=== PATIENT | female | born 1990 | race Caucasian/White ===

== ENCOUNTER 2016-09-04 13:01 | Emergency (ER) | payer OTHER ==
[~2016-09-04] VITALS: Ht 165.1 cm; Wt 90.7 kg
[~2016-09-04 13:01] MED LIST: CHERATUSSIN AC118 ML PO; FLONASE1 SPRAYS NASAL; IBUPROFEN600 MG ORAL; ZITHROMAX250 MG ORAL
[2016-09-04 13:40] VITALS: BP 120/74
--- NOTE | 2016-09-04 13:59 | Emergency Room Report ---
History of Present Illness General Chief Complaint: Abdominal Pain Source: Patient Present Illness HPI 26-year-old female presents to the emergency department complaining of nausea, vomiting and diarrhea. Patient also reports generalized body aches and swelling of the right side of her cheek times one day. Patient reports fevers and chills. 9/10 in severity intermittent right lower abdominal pain. Patient states that she gets 1 episode of sharp pain in the lower abdomen per hour. pt. states diarrhea usually follows, and states on last episode of diarrhea there was BRBPR. pt. denies hx of constipation or hemorrhoids. pt. denies appreciable rectal pain. reports she took pepto once this am. pt. denies blood in the vomit. denies . denies ill contacts with similar symptoms or recent travel. Pt states she was born here and is UTD with all vaccinations. Denies CP , Palpitations, LOC, AMS, dizziness, Changes in Vision, Sensation, paresthesias , or a sudden severe headache. Allergies: Coded Allergies: No Known Allergies (Unverified , 04/28/14) Patient History Past Medical History: see triage record Past Surgical History: none Pertinent Family History: none Now: No Reviewed Nursing Documentation: PMH: Agreed, PSxH: Agreed Nursing Documentation-PMH Past Medical History: No Stated History Review of Systems All Other Systems: negative except mentioned in HPI Physical Exam Vital Signs Date Time Temp Pulse Resp B/P Pulse Ox O2 Delivery O2 Flow Rate FiO2 09/04/16 13:20 101.1 127 20 120/82 99 Room Air Sp02 EP Interpretation: reviewed, abnormal - Pt is tachycardic and febrile General Appearance: no apparent distress, alert, GCS 15, non-toxic Head: normocephalic, atraumatic Eyes: bilateral eye PERRL, bilateral eye normal inspection ENT: hearing grossly normal, normal pharynx, no angioedema, normal voice, TMs + canals normal, uvula midline, dry mucus membranes, other - external right parotid swelling noted, no palpable fluctuance, no stone palpated on bimanual exam. no erythema Neck: full range of motion, supple/symm/no masses Respiratory: chest non-tender, lungs clear, normal breath sounds, speaking full sentences Cardiovascular #1: regular rate, rhythm, no edema Gastrointestinal: normal bowel sounds, non tender, soft, no guarding, no rebound, other - Negative [place] signs, Negative MacBurney's sign, Negative Rosvigns Sign, Negative Psoas, No Peritoneal signs. Rectal: heme negative stool, deferred, black stool Genitourinary: normal inspection, no CVA tenderness Musculoskeletal: back normal, gait/station normal, normal range of motion, non- tender, no calf tenderness Neurologic: alert, oriented x3, responsive, motor strength/tone normal, sensory intact, speech normal Psychiatric: judgement/insight normal, memory normal, mood/affect normal, no suicidal/homicidal ideation Skin: normal color, no rash, warm/dry, well hydrated Lymphatic: no adenopathy Medical Decision Making PA Attestation Dr. reynolds is my supervising Physician whom patient management has been discussed with. Diagnostic Impression: Primary Impression: Gastroenteritis and colitis, viral Additional Impressions: Parotitis, acute Urinary tract infection Qualified Codes: N30.01 - Acute cystitis with hematuria ER Course 26-year-old female presents to the emergency department complaining of nausea, vomiting and diarrhea. Patient also reports generalized body aches and swelling of the right side of her cheek times one day. Patient reports fevers and chills. 9/10 in severity intermittent right lower abdominal pain. Patient states that she gets 1 episode of sharp pain in the lower abdomen per hour. pt. states diarrhea usually follows, and states on last episode of diarrhea there was BRBPR. pt. denies hx of constipation or hemorrhoids. pt. denies appreciable rectal pain. reports she took Pepto once this am. pt. denies blood in the vomit. denies . denies ill contacts with similar symptoms or recent travel. Pt states she was born here and is UTD with all vaccinations. Ddx considered but are not limited to GE, colitis, acute appy, SBO, * , dehydration, infectious diarrhea, viral syndrome, mumps, soft tissue abscess, sialoadenitis. Vital signs: pt. is febrile and tachycardic. H&PE are most consistent with viral syndrome/ Gastroenteritis. - as abdominal physical exam was benign including to tenderness in the adnexal area, I felt CT imaging would not change my management of this patient at this time. ORDERS: -CBC: wbc's elevated at 12.7 -CMP: low NA and Cl, otherwise unremarkable -Lipase: WNL -UA: bacteria, moderate WBC's and leukocytes indicating UTI. -Urine Hcg: Negative ED INTERVENTIONS: -1000mg Tylenol PO - 625 PO once, She continued to be febrile an additional 325 mg Tylenol was given in addition to cooling therapy with ice packs. -- upon re-evaluation fever has subsided. 1000 NS iv hydration, and 4mg IVP zofran for nausea. -500mg Cipro PO d/w pt. that she will be managed as outpatient for possible infectious diarrhea , d/w pt. importance of returning to the ED immediately with and change in condition such as worsening or new symptoms. d/w pt. although enteritis is most likely her symptoms could also be early appendicitis and why follow up in 48 hours is necessary. Pt. and mother who is bedside verbalize their understanding and agreement with proposed treatment plan. DISCHARGE: At this time pt. is stable for d/c to home. Will provide printed patient care instructions, and any necessary prescriptions. Care plan and follow up instructions have been discussed with the patient prior to discharge. Labs Test 09/04/16 13:30 09/04/16 13:46 White Blood Count 12.7 K/UL (4.8-10.8) Red Blood Count 4.75 M/UL (4.20-5.40) Hemoglobin 13.6 G/DL (12.0-16.0) Hematocrit 41.2 % (37.0-47.0) Mean Corpuscular Volume 87 FL (80-99) Mean Corpuscular Hemoglobin 28.6 PG (27.0-31.0) Mean Corpuscular Hemoglobin Concent 33.0 G/DL (32.0-36.0) Red Cell Distribution Width 12.1 % (11.6-14.8) Platelet Count 176 K/UL (150-450) Mean Platelet Volume 9.5 FL (6.5-10.1) Neutrophils (%) (Auto) 80.2 % (45.0-75.0) Lymphocytes (%) (Auto) 13.6 % (20.0-45.0) Monocytes (%) (Auto) 5.9 % (1.0-10.0) Eosinophils (%) (Auto) 0.0 % (0.0-3.0) Basophils (%) (Auto) 0.3 % (0.0-2.0) Sodium Level 134 mEQ/L (135-145) Potassium Level 4.3 mEQ/L (3.4-4.9) Chloride Level 96 mEQ/L (98-107) Carbon Dioxide Level 22 mEQ/L (20-30) Anion Gap 16 (5-15) Blood Urea Nitrogen 10 mg/dL (7-23) Creatinine 0.9 mg/dL (0.5-0.9) Estimat Glomerular Filtration Rate > 60 mL/min (>60) Glucose Level 104 mg/dL (74-106) Calcium Level 9.7 mg/dL (8.6-10.2) Total Bilirubin 0.6 mg/dL (0.0-1.2) Aspartate Amino Transf (AST/SGOT) 21 U/L (5-40) Alanine Aminotransferase (ALT/SGPT) 22 U/L (3-33) Alkaline Phosphatase 68 U/L (35-104) Total Protein 7.7 g/dL (6.6-8.7) Albumin 3.9 g/dL (3.5-5.2) Globulin 3.8 g/dL Albumin/Globulin Ratio 1.0 (1.0-2.7) Lipase 19 U/L (< 60) Urine Color Yellow Urine Appearance Slightly cloudy Urine pH 5 (4.5-8.0) Urine Specific [place] 1.015 (1.005-1.035) Urine Protein 3+ (NEGATIVE) Urine Glucose (UA) Negative (NEGATIVE) Urine Ketones 1+ (NEGATIVE) Urine Occult Blood 2+ (NEGATIVE) Urine Nitrite Negative (NEGATIVE) Urine Bilirubin Negative (NEGATIVE) Urine Urobilinogen Normal MG/DL (0.0-1.0) Urine Leukocyte Esterase 1+ (NEGATIVE) Urine RBC 10-15 /HPF (0 - 2) Urine WBC 5-10 /HPF (0 - 2) Urine Squamous Epithelial Cells Moderate /LPF (NONE/OCC) Urine Bacteria Few /HPF (NONE) Urine Mucus Moderate /LPF (NONE/OCC) Urine HCG, Qualitative Negative Last Vital Signs Date Time Temp Pulse Resp B/P Pulse Ox O2 Delivery O2 Flow Rate FiO2 09/04/16 13:20 101.1 127 20 120/82 99 Room Air Disposition: HOME, SELF-CARE Condition: Stable Scripts Ondansetron Odt* (ZOFRAN ODT*) 4 Mg Tab.rapdis 4 MG ORAL Q6H Y for Nausea & Vomiting, #12 TAB Prov: Kristi Quinonez 09/04/16 Acetaminophen* (TYLENOL EXTRA STRENGTH*) 500 Mg Tablet 500 MG ORAL Q6H, #20 TAB 0 Refills Prov: Kristi Quinonez 09/04/16 Ciprofloxacin* (CIPRO*) 500 Mg Tablet 500 MG PO BID for 7 Days, #14 TAB Prov: Kristi Quinonez 09/04/16 Patient Instructions: Parotitis, [id number], Urinary Tract Infection, Easy-to -Read, Viral Gastroenteritis, Adult, [id number] Additional Instructions: Take medications as directed. Follow up with PCP within 48 hours Return sooner to ED if new symptoms occur, or current symptoms become worse. - Please note that this Emergency Department Report was dictated using Correleccollection development librarian technology software, occasionally this can lead to erroneous entry secondary to interpretation by the dictation equipment. Kristi Quinonez September 04, 2016 13:59
[2016-09-04 14:17] LABS: BASOPHILS % (AUTO) 0.3 % (0.0-2.0); LYMPHOCYTES % (AUTO) 13.6 % (20.0-45.0); MEAN CORPUSCULAR HEMOGLOBIN 28.6 PG (27.0-31.0); MEAN CORPUSCULAR VOLUME 87 FL (80-99); MEAN PLATELET VOLUME 9.5 FL (6.5-10.1); MONOCYTES % (AUTO) 5.9 % (1.0-10.0); NEUTROPHILS % (AUTO) 80.2 % (45.0-75.0); PLATELET COUNT 176 K/UL (150-450); RED BLOOD COUNT 4.75 M/UL (4.20-5.40); RED CELL DISTRIBUTION WIDTH 12.1 % (11.6-14.8); WHITE BLOOD COUNT 12.7 K/UL (4.8-10.8)
[2016-09-04 14:18] LABS: APPEARANCE,URINE SLIGHTLY CLOUDY; KETONES,URINE 1+ (NEGATIVE); LEUKOCYTE ESTERASE ,URINE 1+ (NEGATIVE); NITRITE,URINE NEGATIVE (NEGATIVE); PH,URINE 5 (4.5-8.0); PROTEIN,URINE 3+ (NEGATIVE); UROBILINOGEN,URINE NORMAL MG/DL (0.0-1.0)
[2016-09-04 14:29] LABS: ALANINE AMINOTRANSFERASE 22 U/L (3-33); ANION GAP 16 (5-15); ASPARTATE AMINO TRANSFERASE 21 U/L (5-40); CALCIUM 9.7 mg/dL (8.6-10.2); CARBON DIOXIDE 22 mEQ/L (20-30); CHLORIDE 96 mEQ/L (98-107); CREATININE 0.9 mg/dL (0.5-0.9); GLOMERULAR FILTRATION RATE > 60 mL/min (>60); HEMOLYSIS 1; LIPASE 19 U/L (< 60); POTASSIUM 4.3 mEQ/L (3.4-4.9); SODIUM 134 mEQ/L (135-145); TOTAL PROTEIN 7.7 g/dL (6.6-8.7)
[2016-09-04] MEDS ORDERED: Famotidine 20 MG/ 2ML VIAL IVP ONE (14:30)
[2016-09-04] MEDS ORDERED: Ciprofloxacin 500mg tab ORAL ONE (14:45)
[2016-09-04 14:47] LABS: BACTERIA,URINE FEW /HPF; MUCUS,URINE MODERATE /LPF (NONE/OCC); SQUAMOUS EPITHELIAL CELL,UR MODERATE /LPF (NONE/OCC)
[2016-09-04] MEDS ORDERED: ZOFRAN ODT4 MG ORAL (15:23)
[2016-09-04] MEDS ORDERED: CIPRO500 MG PO (15:23)
[2016-09-04] MEDS ORDERED: TYLENOL EXTRA500 MG ORAL (15:23)
[2016-09-04 15:56] VITALS: BP 102/51
== END 2016-09-04 15:58 | disposition home or self-care (01) ==
LOC: EMR 13:43
DX: K52.9 Noninfective gastroenteritis and colitis, unspecified (principal); K11.21 Acute sialoadenitis; N39.0 Urinary tract infection, site not specified
CPT/HCPCS: 36415; 80053; 81003; 81025; 83690; 85025; 96360; 96374; 96375; 99284; J2405; S0028

== ENCOUNTER 2019-07-06 11:49 | Emergency (ER) | payer OTHER ==
[~2019-07-06] VITALS: Ht 165.1 cm; Wt 90.7 kg
[~2019-07-06 11:49] MED LIST changes: +CIPRO500 MG PO; +TYLENOL EXTRA500 MG ORAL; +ZOFRAN ODT4 MG ORAL
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
[2019-07-06 12:02] VITALS: BP 142/78
[2019-07-06] MEDS ORDERED: TYLENOL325 MG ORAL (12:58)
[2019-07-06] MEDS ORDERED: IBUPROFEN600 MG ORAL (12:58)
[2019-07-06] MEDS ORDERED: ROBAXIN-750750 MG PO (12:58)
[2019-07-06] MEDS ORDERED: LIDODERM700 M1 TOPIC (12:58)
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
[2019-07-06] MEDS ORDERED: Acetaminophen 500mg (ES) tab ORAL ONE (13:00)
[2019-07-06] MEDS ORDERED: Methocarbamol 750mg tab ORAL ONE (13:00)
[2019-07-06] MEDS ORDERED: Ketorolac 30mg Inj IM ONE (13:00)
--- NOTE | 2019-07-06 13:51 | NUR ---
ED Nurse Note: Pt went on x-ray accompanied by tech.
[2019-07-06 14:55] VITALS: BP 142/78
--- NOTE | 2019-07-06 14:55 | NUR ---
ER DISCHARGE NOTE: Patient is cleared to be discharged per ERMD, pt is aox4, on room air, with stable vital signs. pt was given dc and prescription instructions, pt was able to verbalize understanding, pt id band removed. pt is able to ambulate with steady gait. pt took all belongings.
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
== END 2019-07-06 14:55 | disposition home or self-care (01) ==
LOC: EMR 14:55
DX: T14.90XA Injury, unspecified, initial encounter (principal); V43.62XA Car passenger injured in collision with other type car in traffic accident, initial encounter; Y92.410 Unspecified street and highway as the place of occurrence of the external cause; M54.5 Low back pain
CPT/HCPCS: 72020; 81025; 96372; J1885; Z7502; 99283

== ENCOUNTER 2019-12-05 16:25 | Emergency (ER) | payer OTHER ==
[~2019-12-05] VITALS: Ht 165.1 cm; Wt 90.7 kg
[~2019-12-05 16:25] MED LIST changes: +LIDODERM700 M1 TOPIC; +ROBAXIN-750750 MG PO; +TYLENOL325 MG ORAL
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
--- NOTE | 2019-12-05 17:03 | NUR ---
ED Nurse Note: urine sent to labs.
[2019-12-05 17:07] VITALS: BP 117/71
[2019-12-05] MEDS ORDERED: traMADol 50mg tab ORAL ONE (17:15)
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
[2019-12-05] MEDS ORDERED: Ketorolac 30mg Inj IM ONE (17:45)
--- NOTE | 2019-12-05 17:47 | NUR ---
ED Nurse Note: pt taken to CT on stable condition.
--- NOTE | 2019-12-05 18:09 | NUR ---
ED Nurse Note: pt returned from CT.
--- NOTE | 2019-12-05 18:35 | Diagnostic Imaging Report ---
EXAM: CT Lumbar Spine Without Intravenous Contrast CLINICAL HISTORY: PAIN TECHNIQUE: Axial computed tomography images of the lumbar spine without intravenous contrast. CTDI is 24 mGy and DLP is 855 mGy-cm. One or more of the following dose reduction techniques were used: automated exposure control, adjustment of the mA and/or kV according to patient size, use of iterative reconstruction technique. COMPARISON: No relevant prior studies available. FINDINGS: Vertebrae: Unremarkable. No acute fracture. Alignment is preserved. Disc spaces are maintained. No spinal canal or foraminal stenosis. Soft tissues: Unremarkable. IMPRESSION: Normal lumbar spine CT.
--- NOTE | 2019-12-05 19:14 | NUR ---
ED Nurse Note: Hand off given to Krystin VIZCAINO.
[2019-12-05] MEDS ORDERED: Morphine Sulfate 2mg/ml Inj(IV/IM USE ONLY) IVP ONE (19:15)
--- NOTE | 2019-12-05 19:20 | NUR ---
ED Nurse Note: Recieved report to resume care, pt in bed lying supine, awake and alert, has been medicated for back pain but states meds not effective at all, SENIOR TELECOMMUNICATIONS ENGINEER at bedside speaking with pt, will resume care as ordered and closely monitor.
[2019-12-05] MEDS ORDERED: Morphine Sulfate 2mg/ml Inj(IV/IM USE ONLY) IM ONE (19:30)
[2019-12-05] MEDS ORDERED: TRAMADOL HCL50 MG ORAL (19:53)
[2019-12-05] MEDS ORDERED: LIDODERM700 M1 TOPIC (19:53)
--- NOTE | 2019-12-05 20:00 | NUR ---
ED Nurse Note: Pt medicated for pain, meds effective with pain at 5/10, pt is ambulatory, being d/c to home with mother, all instructions and prescriptions given and pt re-verbalizes safety measures with administration, armband removed, nad noted during d/c to home.
[2019-12-05 20:10] VITALS: BP 117/71
== END 2019-12-05 20:10 | disposition home or self-care (01) ==
LOC: EMR 16:51
DX: M54.41 Lumbago with sciatica, right side (principal)
CPT/HCPCS: 72131; 81025; 96372; J1885; J2270; Z7502; 99284

== ENCOUNTER 2020-03-28 23:43 | Emergency (ER) | payer MEDICAID, OTHER ==
[~2020-03-28] VITALS: Ht 165.1 cm; Wt 90.7 kg
[~2020-03-28 23:43] MED LIST changes: +TRAMADOL HCL50 MG ORAL
[2020-03-28 23:53] VITALS: BP 127/85
--- NOTE | 2020-03-29 00:06 | NUR ---
ED Nurse Note: pt ambulated into ed from home co vaginal itching, burning, dark urine, and foul smell x 5 days with thin liquidy discharge. pt states previous hx of yeast infection in the past. pt aao x 4, ambulates with steady gait. pt states she is unable to provide urine sample at this time. will continue to monitor. awaiting ermd at bedside. awaiting further orders.
--- NOTE | 2020-03-29 00:30 | NUR ---
ED Nurse Note: ERMD and RN at bedside for vaginal exam and wet mount. pt tolerated well no ss of distress noted. will continue to monitor.
--- NOTE | 2020-03-29 00:33 | Emergency Room Report ---
History of Present Illness General Chief Complaint: Female Urogenital Problems Source: Patient Present Illness HPI Patient is a 29-year-old female presents for increased vaginal irritation. Onset of symptoms for the past few days. Denies any recent unprotected intercourse. Had not taken any medications. Patient had recently changed primary care physicians. Reports having some increased discomfort after u rination but denies any urgency or frequency. Prior history of herpes and is currently on prophylaxis with medications. Denies any skin lesions. Denies any fever or other locations of discomfort. Allergies: Coded Allergies: PENICILLINS (Verified Allergy, Mild, 03/29/20) COVID-19 Screening Contact w/high risk pt: No Experienced COVID-19 symptoms?: No COVID-19 Testing performed REPA[employer]ER [employer]OD FURNITURE: No Patient History Last Menstrual Period: 03/17/2020 Now: No : 0 Para: 0 Nursing Documentation-[facility] Past Medical History: No Stated History Physical Exam Vital Signs Date Time Temp Pulse Resp B/P (MAP) Pulse Ox O2 Delivery O2 Flow Rate FiO2 03/28/20 23:43 97.7 76 18 127/85 (99) 95 Room Air Sp02 EP Interpretation: reviewed, normal General Appearance: normal inspection, well appearing, no apparent distress, alert, GCS 15 Head: atraumatic ENT: normal ENT inspection, hearing grossly normal, normal voice Neck: normal inspection, full range of motion, supple, no bony tend Respiratory: normal inspection, lungs clear, normal breath sounds, no respiratory distress, no retraction, no wheezing Cardiovascular #1: regular rate, rhythm, no edema Gastrointestinal: normal inspection, normal bowel sounds, non tender, soft, no guarding, no hernia Genitourinary: no CVA tenderness, os closed, other - Cervical discharge with slight yellow discoloration Musculoskeletal: normal inspection, back normal, normal range of motion Neurologic: alert, motor strength/tone normal, rubber process hand III-XII nml as tested, responsive, speech normal, normal inspection Psychiatric: normal inspection, judgement/insight normal, mood/affect normal Medical Decision Making Diagnostic Impression: Primary Impression: Cervicitis Additional Impression: Vaginitis ER Course Patient presented for increased vaginal discomfort. Differential diagnosis include was not limited to herpes, yeast infection, urethritis among others. Patient has a benign exam and does not appear to require any imaging or laboratory testing at this time. Wet mount shows no evidence of trichomonas or yeast. Patient was given oral azithromycin. Patient be discharged home. She was advised to have outpatient STD testing. The patient is advised to follow up with primary care doctor in 1-2 days. Patient is advised to return if any worsening condition or if any changes in status that are concerning. This report is dictated with [employer] health care aide software which may occasio darwin lead to discrepancies related to use of this software. Labs Test 03/29/20 00:30 Urine Color Yellow Urine Appearance Clear Urine pH 5 (4.5-8.0) Urine Specific [place] 1.025 (1.005-1.035) Urine Protein Negative (NEGATIVE) Urine Glucose (UA) Negative (NEGATIVE) Urine Ketones Negative (NEGATIVE) Urine Blood 1+ (NEGATIVE) Urine Nitrite Negative (NEGATIVE) Urine Bilirubin Negative (NEGATIVE) Urine Urobilinogen Normal MG/DL (0.0-1.0) Urine Leukocyte Esterase 1+ (NEGATIVE) Last Vital Signs Date Time Temp Pulse Resp B/P (MAP) Pulse Ox O2 Delivery O2 Flow Rate FiO2 03/28/20 23:53 97.7 76 18 127/85 95 Room Air Status: improved Disposition: HOME, SELF-CARE Condition: Stable Scripts Doxycycline Hyclate* (VIBRAMYCIN*) 100 Mg Capsule 100 MG ORAL EVERY 12 HOURS, #14 CAP 0 Refills Prov: Israel Tong MD 03/29/20 Referrals: [facility],REFERRING (PCP) Israel Tong MD Mar 29, 2020 00:33
[2020-03-29 00:50] LABS: APPEARANCE,URINE CLEAR; BILIRUBIN, URINE NEGATIVE (NEGATIVE); GLUCOSE, URINE (UA) NEGATIVE (NEGATIVE); KETONES,URINE NEGATIVE (NEGATIVE); LEUKOCYTE ESTERASE ,URINE 1+ (NEGATIVE); NITRITE,URINE NEGATIVE (NEGATIVE); PH,URINE 5 (4.5-8.0); PROTEIN,URINE NEGATIVE (NEGATIVE); UROBILINOGEN,URINE NORMAL MG/DL (0.0-1.0)
[2020-03-29] MEDS ORDERED: VIBRAMYCIN100 MG ORAL (00:51)
[2020-03-29] MEDS ORDERED: Azithromycin 250mg tab ONE (00:54)
[2020-03-29 00:59] LABS: COLOR,URINE YELLOW
[2020-03-29] MEDS ORDERED: Azithromycin 250mg tab ORAL ONE (01:00)
--- NOTE | 2020-03-29 01:00 | NUR ---
ED Nurse Note: all medications administered, pt tolerated well no ss of distress noted. will continue to monitor.
[2020-03-29 01:35] VITALS: BP 121/73
--- NOTE | 2020-03-29 01:35 | NUR ---
ER DISCHARGE NOTE: Patient is cleared to be discharged home per ERMD, pt is aox4, 99% on room air, with stable vital signs. pt was given dc and prescription instructions, pt was able to verbalize understanding, pt id band removed without complications. pt is able to ambulate with steady gait. pt took all belongings.
== END 2020-03-29 01:35 | disposition home or self-care (01) ==
LOC: EMR 03-29 00:09
DX: N72 Inflammatory disease of cervix uteri (principal); N76.0 Acute vaginitis; Z88.0 Allergy status to penicillin
CPT/HCPCS: 81003; 81025; 87210; Q0144; Z7502; 99283